=== PATIENT | female | born 1995 | race Caucasian/White ===

== ENCOUNTER → 2017-08-07 | Emergency (ER) | payer OTHER ==
[~2017-08-07] VITALS: Ht 154.9 cm; Wt 53.1 kg
[~2017-08-07] MED LIST: BENADRYL50 MG PO; OSEL75CA PO; TUSNEL LIQUID178 ML PO
== END | disposition home or self-care (01) ==
LOC: ER 22:54
DX: S90.561A Insect bite (nonvenomous), right ankle, initial encounter (principal); W57.XXXA Bitten or stung by nonvenomous insect and other nonvenomous arthropods, initial encounter; Y93.89 Activity, other specified; Y92.89 Other specified places as the place of occurrence of the external cause; Y99.8 Other external cause status

== ENCOUNTER 2018-02-16 05:32 | Emergency (ER) | payer OTHER ==
[~2018-02-16] VITALS: Ht 154.9 cm; Wt 50.8 kg
== END 2018-02-16 11:50 | disposition home or self-care (01) ==
LOC: ER 05:32
DX: R51 Headache (principal); R07.89 Other chest pain

== ENCOUNTER 2023-05-07 18:53 | Emergency (ER) | payer OTHER ==
[~2023-05-07] VITALS: Ht 154.9 cm; Wt 53.5 kg
[2023-05-07] MEDS ORDERED: CHILDREN'S ASPI81 MG (19:39)
[2023-05-07] MEDS ORDERED: FOLIC ACID0.8 M1 (19:39)
[2023-05-07] MEDS ORDERED: PRENA1 TRUE CO1 EACH (19:39)
[2023-05-07 21:04] LABS: URINE APPEARANCE Clear; URINE BILIRRUBIN Negative (NEGATIVE); URINE BLOOD Negative; URINE COLOR Yellow; URINE GLUCOSE Negative (NEGATIVE); URINE LEUKOCYTE Trace; URINE NITRATE Negative; URINE PROTEIN Trace (NEGATIVE)
[2023-05-07 21:07] LABS: URINE BACTERIA 1650.5 uL (0.0-1933); URINE EPITHELIAL CELLS 41.8 uL (0.0-38.8); URINE RBC 2.2 uL (0.0-20.8); URINE WBC 31.3 uL (0.0-23.2)
== END 2023-05-07 22:31 | disposition home or self-care (01) ==
LOC: ER 18:53
PROVIDERS: General Practice
DX: R10.9 Unspecified abdominal pain (principal); Z3A.19 19 weeks gestation of pregnancy; M54.50 Low back pain, unspecified

== ENCOUNTER 2023-05-11 11:09 | Outpatient (CLI) | payer OTHER ==
[~2023-05-11 11:09] MED LIST changes: +CHILDREN'S ASPI81 MG; +FOLIC ACID0.8 M1; +PRENA1 TRUE CO1 EACH
== END 2023-05-11 11:15 | disposition home or self-care (01) ==
LOC: PRENATAL 11:09
PROVIDERS: ATTEND Obstetrics & Gynecology Maternal & Fetal Medicine
DX: O35.9XX0 Maternal care for (suspected) fetal abnormality and damage, unspecified, not applicable or unspecified (principal); O35.3XX0 Maternal care for (suspected) damage to fetus from viral disease in mother, not applicable or unspecified; O44.00 Complete placenta previa NOS or without hemorrhage, unspecified trimester; Z3A.20 20 weeks gestation of pregnancy

== ENCOUNTER 2023-08-02 15:32 | Outpatient (CLI) | payer OTHER | END 2023-08-02 15:33 | disposition home or self-care (01) | LOC: PRENATAL 15:32 | PROVIDERS: ATTEND Obstetrics & Gynecology Maternal & Fetal Medicine | DX: O26.849 Uterine size-date discrepancy, unspecified trimester (principal); O36.8199 Decreased fetal movements, unspecified trimester, other fetus; Z3A.32 32 weeks gestation of pregnancy ==